=== PATIENT | female | born 1965 | race Caucasian/White ===

== ENCOUNTER 2016-11-23 15:15 | Emergency (ER) | payer MEDICAID, OTHER ==
[~2016-11-23] VITALS: Ht 149.9 cm; Wt 65.6 kg
[~2016-11-23 15:15] MED LIST: ALBU18HF INH; ALBU8.5H3 INH; ALBU8.5H5 INH; ASPI-496 PO; CARB200T4 PO; CLON-364 PO; CYCL-259 PO; DOXY100T PO; FENO145T32 PO; GABA600T2 PO; GABA800T2 PO; HYDR-3138 PO; IBUP200T5 PO; IPRA3AMP NPPB; LEVO750T26 PO; LITH300T3 PO; METF500T4 PO; NICO1PAT4 TD; NICO1PAT5 TD; NYST60PO TP; OXCA600T3 PO; PANT40TA5 PO; POLY17PO5 PO; TRAM50TA2 PO; naproxen PO
[2016-11-23 16:17] LABS: HEMOGLOBIN 14.4 g/dL (11.7-16.4)
[2016-11-23 16:25] LABS: ASPARTATE AMINO TRANSFERASE 10 U/L (15-37); BLOOD UREA NITROGEN 14 mg/dL (7-18)
[2016-11-23 16:38] LABS: IS PT STATUS REG ER OR PRE ER? YES
[2016-11-23] MEDS ORDERED: SODIUM CHLORIDE 0.9% 1,000 ML IV ONE (17:01)
[2016-11-23] MEDS ORDERED: SODIUM CHLORIDE 0.9% 1,000ML IVBOLUS ONE (17:30)
[2016-11-23] MEDS ORDERED: MECLIZINE CHEWABLE 25 MG TAB PO ONE (17:30)
[2016-11-23] MEDS ORDERED: KETOROLAC 30 MG/1 ML IVPush ONE (17:30)
[2016-11-23] MEDS ORDERED: SODIUM CHLORIDE FLUSH 10ML SYR IVF ONE (17:30)
[2016-11-23] MEDS ORDERED: KETOROLAC 30 MG/1 ML ONE (17:31)
[2016-11-23] MEDS ORDERED: MECLIZINE CHEWABLE 25 MG TAB ONE (17:31)
[2016-11-23 19:50] VITALS: BP 102/78
== END 2016-11-23 19:52 | disposition home or self-care (01) ==
LOC: ED 19:46
DX: R07.89 Other chest pain (principal); H81.11 Benign paroxysmal vertigo, right ear; H66.001 Acute suppurative otitis media without spontaneous rupture of ear drum, right ear; F31.9 Bipolar disorder, unspecified; J45.909 Unspecified asthma, uncomplicated; F43.10 Post-traumatic stress disorder, unspecified; C50.919 Malignant neoplasm of unspecified site of unspecified female breast; Z90.49 Acquired absence of other specified parts of digestive tract; Z90.710 Acquired absence of both cervix and uterus
CPT/HCPCS: 36415; 70450; 71020; 80053; 84484; 85025; 93005; 96361; 96374; 99285; J1885; J7030

== ENCOUNTER 2017-02-10 17:30 | Emergency (ER) | payer OTHER ==
[~2017-02-10] VITALS: Ht 152.4 cm; Wt 65.1 kg
[2017-02-10 18:23] LABS: ASPARTATE AMINO TRANSFERASE 15 U/L (15-37); BLOOD UREA NITROGEN 16 mg/dL (7-18)
[2017-02-10] MEDS ORDERED: KETOROLAC 30 MG/1 ML ONE (18:29)
[2017-02-10] MEDS ORDERED: ONDANSETRON 2MG/ML, 2ML ONE (18:29)
[2017-02-10] MEDS ORDERED: SODIUM CHLORIDE 0.9% 1,000ML IVBOLUS ONE (18:30)
[2017-02-10] MEDS ORDERED: KETOROLAC 30 MG/1 ML IVPush ONE (18:30)
[2017-02-10] MEDS ORDERED: ONDANSETRON 2MG/ML, 2ML IVPush ONE (18:30)
[2017-02-10] MEDS ORDERED: SODIUM CHLORIDE FLUSH 10ML SYR IVF ONE (18:30)
[2017-02-10] MEDS ORDERED: OMNIPAQUE 350 MG/ML, 100ML BOTTLE ONE (19:18)
[2017-02-10] MEDS ORDERED: HYDROcodone/APAP 5/325 TABLET ONE (21:17)
[2017-02-10] MEDS ORDERED: HYDROcodone/APAP 5/325 TABLET PO ONE (21:30)
[2017-02-10 21:36] VITALS: BP 116/76
== END 2017-02-10 21:38 | disposition home or self-care (01) ==
LOC: ED 20:19
DX: K40.90 Unilateral inguinal hernia, without obstruction or gangrene, not specified as recurrent (principal); E11.9 Type 2 diabetes mellitus without complications; Z90.710 Acquired absence of both cervix and uterus
CPT/HCPCS: 36415; 74022; 74177; 80053; 81003; 83690; 85025; 96361; 96374; 96375; 99285; J1885; J2405; J7030; Q9967

== ENCOUNTER 2017-08-21 02:26 | Emergency (ER) | payer SELFPAY ==
[~2017-08-21] VITALS: Ht 152.4 cm; Wt 70.4 kg
[~2017-08-21 02:26] MED LIST changes: -ALBU8.5H3 INH; +ALBU8.5H8 INH; -HYDR-3138 PO; +HYDR-3237 PO; +IBUP-1484 PO; -IBUP200T5 PO; +NICO-486 TD; +NICO-487 TD; -NICO1PAT4 TD; -NICO1PAT5 TD
[2017-08-21] MEDS ORDERED: ALBUTEROL/IPRATROPIUM 2.5MG/0.5MG, 3 ML ONE (02:52)
[2017-08-21] MEDS ORDERED: ALBUTEROL SULFATE 2.5 MG/3 ML ONE (02:52)
[2017-08-21] MEDS ORDERED: ALBUTEROL SULFATE 2.5 MG/3 ML NPPB ONE (03:00)
[2017-08-21] MEDS ORDERED: ALBUTEROL/IPRATROPIUM 2.5MG/0.5MG, 3 ML NPPB ONE (03:00)
[2017-08-21 03:29] VITALS: BP 119/71
== END 2017-08-21 03:42 | disposition home or self-care (01) ==
LOC: ED 02:46
DX: J44.1 Chronic obstructive pulmonary disease with (acute) exacerbation (principal); J20.9 Acute bronchitis, unspecified; F31.9 Bipolar disorder, unspecified; E11.9 Type 2 diabetes mellitus without complications; F17.200 Nicotine dependence, unspecified, uncomplicated; Z90.49 Acquired absence of other specified parts of digestive tract
CPT/HCPCS: 71020; 93005; 94640; 99284; J7512; J7613; J7620

== ENCOUNTER 2018-02-08 10:45 | Emergency (ER) | payer SELFPAY ==
[~2018-02-08] VITALS: Ht 152.4 cm; Wt 72.0 kg
[2018-02-08] MEDS ORDERED: SODIUM CHLORIDE FLUSH 10ML SYR IVF ONE (11:30)
[2018-02-08] MEDS ORDERED: SODIUM CHLORIDE 0.9% 1,000ML IVBOLUS ONE (11:30)
[2018-02-08 12:02] LABS: BASOPHILS # (AUTO) 0.04 x10^3/uL (0-0.1); BASOPHILS % (AUTO) 0 % (0-1); EOSINOPHILS # (AUTO) 0.25 x10^3/uL (0-0.4); EOSINOPHILS % (AUTO) 3 % (1-7); LYMPHOCYTES # (AUTO) 3.53 x10^3/uL (1-3.4); LYMPHOCYTES % (AUTO) 36 % (22-44); MD NO; MEAN CORPUSCULAR HEMOGLOBIN 32.2 pg (27.0-34.8); MEAN CORPUSCULAR HGB CONC 34.1 g/dL (32.4-35.8); MEAN CORPUSCULAR VOLUME 94.3 fL (80-100); MEAN PLATELET VOLUME 7.9 fL (7.4-10.4); MONOCYTES # (AUTO) 0.57 x10^3/uL (0.2-0.8); MONOCYTES % (AUTO) 6 % (2-9); NEUTROPHILS # (AUTO) 5.33 x10^3/uL (1.8-6.8); NEUTROPHILS % (AUTO) 55 % (42-75); PLATELET COUNT 303 x10^3/uL (130-400); RED CELL DISTRIBUTION WIDTH 13.1 % (9.6-15.2)
[2018-02-08 12:12] LABS: ALANINE AMINOTRANSFERASE 29 U/L (12-78); ALBUMIN 3.5 g/dL (3.4-5.0); ANION GAP 10 mmol/L (5-15); CALCIUM 8.8 mg/dL (8.5-10.1); CHLORIDE 108 mmol/L (98-107)
[2018-02-08 12:14] LABS: ALKALINE PHOSPHATASE 126 U/L (45-117); BILIRUBIN,TOTAL 0.2 mg/dL (0.2-1.0); TOTAL PROTEIN 7.2 g/dL (6.4-8.2)
[2018-02-08 12:22] LABS: ACETONE, SERUM Negative (Negative)
[2018-02-08 12:48] LABS: HEMOGLOBIN A1C 7.1 % (4.2-6.3)
[2018-02-08 13:53] VITALS: BP 108/77
== END 2018-02-08 13:55 | disposition home or self-care (01) ==
LOC: ED 13:52
DX: R55 Syncope and collapse (principal); E11.65 Type 2 diabetes mellitus with hyperglycemia; J44.9 Chronic obstructive pulmonary disease, unspecified; Z90.49 Acquired absence of other specified parts of digestive tract; G43.909 Migraine, unspecified, not intractable, without status migrainosus; F43.10 Post-traumatic stress disorder, unspecified
CPT/HCPCS: 36415; 71046; 80053; 82010; 82800; 83036; 85025; 93005; 99285

== ENCOUNTER 2018-04-05 12:25 | Emergency (ER) | payer SELFPAY ==
[~2018-04-05] VITALS: Ht 152.4 cm; Wt 69.0 kg
[~2018-04-05 12:25] MED LIST changes: -CLON-364 PO; +CLON0.5T11 PO; -IPRA3AMP NPPB; +IPRA3AMP30 NPPB; -METF500T4 PO; +METF500T5 PO
[2018-04-05 12:30] VITALS: BP 120/82
== END 2018-04-05 13:27 | disposition home or self-care (01) ==
LOC: ED 13:26
DX: H66.003 Acute suppurative otitis media without spontaneous rupture of ear drum, bilateral (principal); E11.65 Type 2 diabetes mellitus with hyperglycemia; J44.9 Chronic obstructive pulmonary disease, unspecified; F17.210 Nicotine dependence, cigarettes, uncomplicated; Z85.3 Personal history of malignant neoplasm of breast
CPT/HCPCS: 99283

== ENCOUNTER 2018-12-19 17:36 | Inpatient (IN) | payer MEDICAID ==
[~2018-12-19] VITALS: Ht 152.4 cm; Wt 72.6 kg
[~2018-12-19 17:36] MED LIST changes: -GABA600T2 PO; +GABA600T7 PO; -GABA800T2 PO; +GABA800T5 PO; +METF500T17 PO; -METF500T5 PO
[2018-12-19] MEDS ORDERED: ALBUTEROL/IPRATROPIUM 2.5MG/0.5MG, 3 ML NPPB ONE (18:00)
[2018-12-19 18:14] LABS: BASOPHILS # (AUTO) 0.04 x10^3/uL (0-0.1); BASOPHILS % (AUTO) 0 % (0-1); EOSINOPHILS # (AUTO) 0.18 x10^3/uL (0-0.4); EOSINOPHILS % (AUTO) 2 % (1-7); LYMPHOCYTES # (AUTO) 2.75 x10^3/uL (1-3.4); LYMPHOCYTES % (AUTO) 29 % (22-44); MD NO; MEAN CORPUSCULAR HEMOGLOBIN 32.4 pg (27.0-34.8); MEAN CORPUSCULAR HGB CONC 34.6 g/dL (32.4-35.8); MEAN CORPUSCULAR VOLUME 93.6 fL (80-100); MEAN PLATELET VOLUME 8.3 fL (7.4-10.4); MONOCYTES # (AUTO) 0.73 x10^3/uL (0.2-0.8); MONOCYTES % (AUTO) 8 % (2-9); NEUTROPHILS % (AUTO) 61 % (42-75); PLATELET COUNT 269 x10^3/uL (130-400); RED BLOOD COUNT 4.71 x10^6/uL (3.82-5.3); RED CELL DISTRIBUTION WIDTH 13.1 % (9.6-15.2)
[2018-12-19 18:19] LABS: ALBUMIN 3.8 g/dL (3.4-5.0); ANION GAP 8 mmol/L (5-15); CALCIUM 9.2 mg/dL (8.5-10.1); CHLORIDE 109 mmol/L (98-107); CREATININE 0.92 mg/dL (0.55-1.02)
--- NOTE | 2018-12-19 18:19 | NUR ---
PT PRESSENTED TO ED WITH SHORTNESS OF BREATH AND COUGH X 4 DAYS. PT A&OX4. PT PLACED IN ROOM AND PLACED ON BP AND CONT. PULSE OXIMETER. ASSESSMENT COMPLETED. PT PLACED ON 2 LITERS NC AT 97%. HAS SEEN PT AND ORDERS RECEIVED. REPORT GIVEN TO JF CARDOZA
[2018-12-19] MEDS ORDERED: ALBUTEROL/IPRATROPIUM 2.5MG/0.5MG, 3 ML ONE ×2 (18:24→23:10)
--- NOTE | 2018-12-19 18:27 | NUR ---
RT TO BEDSIDE
[2018-12-19] MEDS ORDERED: ALBU90AE INH (18:29)
[2018-12-19 18:39] LABS: TROPONIN I < 0.015 ng/mL (0.000-0.045)
--- NOTE | 2018-12-19 18:58 | NUR ---
AFTER BREATHING TREATMENT BREATH SOUNDS TO BASES MORE AUDIBLE. PATIENT REPORT "I FEEL MUCH BETTER." HOWEVER, ON ROOM AIR POX 86-88% AND HR REMAINS 105-110 PROVIDER MADE AWARE-PLAN TO ADMIT PATIENT UPDATED WITH ESTIMATED POC CALL SUAREZ IN HAND/SIDE RAIL UP REPORT TO MARCO CARDOZA
--- NOTE | 2018-12-19 19:04 | NUR ---
report from kristin mckinney. pt updated on poc. resting in room. connected to monitors. call light within reach.
[2018-12-19] MEDS ORDERED: ENOXAPARIN 40 MG/0.4 ML SQ SCH (20:30)
[2018-12-19] MEDS ORDERED: POLYETHYLENE GLYCOL 17 GM PACKET PO PRN (20:30)
[2018-12-19] MEDS ORDERED: ACETAMINOPHEN 325 MG TABLET PO PRN (20:30)
[2018-12-19] MEDS ORDERED: hydrALAzine 20 MG/ML, 1ML IVPush PRN (20:30)
[2018-12-19] MEDS ORDERED: GUAIFENESIN/COD200MG-20MG/10ML LIQUID PO PRN (20:30)
[2018-12-19 20:54] LABS: HEMOGLOBIN A1C 6.8 % (4.2-6.3)
[2018-12-19 21:04] VITALS: BP 120/82
[2018-12-19] MEDS ORDERED: NICOTINE 21 MG/24 HR PATCH.TD24 TD SCH (22:00)
[2018-12-20 00:21] VITALS: BP 125/81
[2018-12-20] MEDS: methylPREDNISolone SOD SUCC 125 MG/2 ML IVPush SCH ×2 (00:32→06:25)
[2018-12-20 06:10] LABS: BASOPHILS # (AUTO) 0.01 x10^3/uL (0-0.1); BASOPHILS % (AUTO) 0 % (0-1); EOSINOPHILS % (AUTO) 0 % (1-7); LYMPHOCYTES # (AUTO) 1.05 x10^3/uL (1-3.4); LYMPHOCYTES % (AUTO) 10 % (22-44); MD NO; MEAN CORPUSCULAR HEMOGLOBIN 32.1 pg (27.0-34.8); MEAN CORPUSCULAR HGB CONC 34.5 g/dL (32.4-35.8); MEAN CORPUSCULAR VOLUME 93.2 fL (80-100); MEAN PLATELET VOLUME 8.4 fL (7.4-10.4); MONOCYTES # (AUTO) 0.04 x10^3/uL (0.2-0.8); MONOCYTES % (AUTO) 0 % (2-9); NEUTROPHILS # (AUTO) 8.99 x10^3/uL (1.8-6.8); NEUTROPHILS % (AUTO) 89 % (42-75); PLATELET COUNT 272 x10^3/uL (130-400); RED BLOOD COUNT 4.76 x10^6/uL (3.82-5.3); RED CELL DISTRIBUTION WIDTH 13.2 % (9.6-15.2)
[2018-12-20 06:19] LABS: ALBUMIN 3.9 g/dL (3.4-5.0); ANION GAP 7 mmol/L (5-15); CALCIUM 9.7 mg/dL (8.5-10.1); CHLORIDE 110 mmol/L (98-107)
[2018-12-20 06:23] LABS: ALANINE AMINOTRANSFERASE 34 U/L (12-78); ALKALINE PHOSPHATASE 127 U/L (45-117); CREATININE 1.03 mg/dL (0.55-1.02); TOTAL PROTEIN 7.7 g/dL (6.4-8.2)
[2018-12-20 06:24] LABS: BILIRUBIN,TOTAL < 0.1 mg/dL (0.2-1.0)
[2018-12-20 06:59] VITALS: BP 121/83
[2018-12-20] MEDS ORDERED: ALBUTEROL SULFATE 2.5 MG/3 ML NPPB SCH (07:00)
[2018-12-20] MEDS ORDERED: IPRA3AMP30 NEB (11:31)
[2018-12-20] MEDS ORDERED: NICO-485 TD (11:31)
[2018-12-20] MEDS ORDERED: NICO-486 TD (11:31)
[2018-12-20] MEDS ORDERED: NICO-487 TD (11:31)
[2018-12-20] MEDS ORDERED: METH4TAB2 PO (11:31)
== END 2018-12-20 12:17 | disposition home or self-care (01) | DRG 189 ==
LOC: ED 19:19 → EDIP 19:37 → 4WST 20:32 → DCLOUNGE 12-20 12:05
PROVIDERS: ADMIT Family Medicine; ATTEND Family Medicine
DX: J96.01 Acute respiratory failure with hypoxia (principal); J43.9 Emphysema, unspecified; E11.9 Type 2 diabetes mellitus without complications; F31.9 Bipolar disorder, unspecified; F43.10 Post-traumatic stress disorder, unspecified; F17.200 Nicotine dependence, unspecified, uncomplicated; I10 Essential (primary) hypertension; Z87.01 Personal history of pneumonia (recurrent); Z85.3 Personal history of malignant neoplasm of breast; Z79.01 Long term (current) use of anticoagulants; Z90.710 Acquired absence of both cervix and uterus; Z90.49 Acquired absence of other specified parts of digestive tract; Z90.10 Acquired absence of unspecified breast and nipple
CPT/HCPCS: 36415; 99285; J7613; J7620; 71045; 80048; 80053; 82040; 83036; 84484; 85025; 93005; 94640; G0378; J1650; J2930; J7512

== ENCOUNTER 2019-08-02 22:44 | Emergency (ER) | payer MEDICAID, OTHER ==
[~2019-08-02] VITALS: Ht 152.4 cm; Wt 70.8 kg
[~2019-08-02 22:44] MED LIST changes: +ALBU90AE INH; -IBUP-1484 PO; +IBUP-1902 PO; +IPRA3AMP30 NEB; +METH4TAB2 PO; +NICO-485 TD
[2019-08-02 22:46] VITALS: BP 161/92
--- NOTE | 2019-08-02 22:58 | NUR ---
PT HERE WITH C/O LEFT SIDED DENTAL PAIN, THINKS "I MIGHT HAVE AN ABCESS." PT DENIES TRAUMA, UNABLE TO STATE IF PAIN IS LOCALIZED TO UPPER OR LOWER JAW. PT TEARFUL. PA AT BEDSIDE FOR EXAM.
[2019-08-02] MEDS ORDERED: BUPIVACAINE 0.25% ONE (23:06)
[2019-08-02] MEDS ORDERED: LIDOCAINE-MPF 1%, 5ML ONE (23:06)
--- NOTE | 2019-08-02 23:09 | NUR ---
PA AT BEDSIDE.
--- NOTE | 2019-08-02 23:27 | NUR ---
Patient/Caregiver given discharge instructions and they have confirmed that they understand the instructions. Patient ambulatory with steady gait.
[2019-08-02] MEDS ORDERED: LIDOCAINE-MPF 1%, 5ML INFIL ONE (23:30)
[2019-08-02] MEDS ORDERED: BUPIVACAINE 0.25% INFIL ONE (23:30)
== END 2019-08-02 23:34 | disposition home or self-care (01) ==
LOC: ED 23:15
DX: K08.89 Other specified disorders of teeth and supporting structures (principal); R51 Headache; F17.210 Nicotine dependence, cigarettes, uncomplicated; E11.9 Type 2 diabetes mellitus without complications; Z72.9 Problem related to lifestyle, unspecified; Z72.89 Other problems related to lifestyle
CPT/HCPCS: 64400; 99284

== ENCOUNTER 2019-09-22 15:21 | Emergency (ER) | payer OTHER ==
[~2019-09-22] VITALS: Ht 152.4 cm; Wt 73.0 kg
--- NOTE | 2019-09-22 16:19 | NUR ---
Pt to room from [facility].
[2019-09-22] MEDS ORDERED: ASPIRIN 81 MG TABLET CHEW ONE (17:05)
[2019-09-22 17:08] LABS: BASOPHILS # (AUTO) 0.05 x10^3/uL (0-0.1); BASOPHILS % (AUTO) 0 % (0-1); EOSINOPHILS # (AUTO) 0.16 x10^3/uL (0-0.4); EOSINOPHILS % (AUTO) 1 % (1-7); LYMPHOCYTES # (AUTO) 3.78 x10^3/uL (1-3.4); LYMPHOCYTES % (AUTO) 28 % (22-44); MD NO; MEAN CORPUSCULAR HEMOGLOBIN 31.7 pg (27.0-34.8); MEAN CORPUSCULAR HGB CONC 33.8 g/dL (32.4-35.8); MEAN CORPUSCULAR VOLUME 93.9 fL (80-100); MEAN PLATELET VOLUME 8.3 fL (7.4-10.4); MONOCYTES # (AUTO) 0.51 x10^3/uL (0.2-0.8); MONOCYTES % (AUTO) 4 % (2-9); NEUTROPHILS % (AUTO) 66 % (42-75); PLATELET COUNT 306 x10^3/uL (130-400); RED BLOOD COUNT 4.89 x10^6/uL (3.82-5.3); RED CELL DISTRIBUTION WIDTH 13.6 % (9.6-15.2)
--- NOTE | 2019-09-22 17:14 | NUR ---
BEDSIDE REPORT RECEIVED FROM SONY SALINAS. PLAN OF CARE DISCUSSED
--- NOTE | 2019-09-22 17:14 | NUR ---
THIS IS A 54 YO FEMALE BIB [facility] FOR INTERMITTENT CP STARTING "A FEW DAYS AGO". PATIENT CURRENTLY C/O 2/10 STERNAL PAIN WITH NO RADIATION, DENIES SOB, DENIES BETANCOURT, DENIES ANY CARDIAC HX. PATIENT A&OX4, LABS DRAWN, VSS, NAD, CALL LIGHT IN REACH.
[2019-09-22 17:17] LABS: ALBUMIN 3.7 g/dL (3.4-5.0); ANION GAP 8 mmol/L (5-15); CALCIUM 9.3 mg/dL (8.5-10.1); CHLORIDE 108 mmol/L (98-107)
--- NOTE | 2019-09-22 17:20 | NUR ---
UNIVERSITY ADMINISTRATOR IN ROOM
[2019-09-22 17:21] LABS: TROPONIN I < 0.015 ng/mL (0.000-0.045)
[2019-09-22] MEDS ORDERED: ASPIRIN 81 MG TABLET CHEW PO ONE (18:00)
--- NOTE | 2019-09-22 18:05 | NUR ---
PATIENT RESTING, VSS, NAD, RESPIRATIONS EVEN AND UNLABORED, WHEN ASKED ABOUT CHEST PAIN, PT STATES "IT'S VERY DULL NOW, LIKE -10/16". WAITING FOR DISPO
[2019-09-22 18:47] VITALS: BP 130/81
== END 2019-09-22 18:49 | disposition home or self-care (01) ==
LOC: ED 18:16
DX: R07.89 Other chest pain (principal); I11.9 Hypertensive heart disease without heart failure; E11.9 Type 2 diabetes mellitus without complications; J44.0 Chronic obstructive pulmonary disease with (acute) lower respiratory infection; F17.200 Nicotine dependence, unspecified, uncomplicated
CPT/HCPCS: 36415; 71045; 80048; 82040; 84484; 85025; 93005; 99284

== ENCOUNTER 2020-01-18 16:30 | Emergency (ER) | payer MEDICAID ==
[~2020-01-18] VITALS: Ht 152.4 cm; Wt 74.0 kg
[~2020-01-18 16:30] MED LIST changes: +CLON-364 PO; -CLON0.5T11 PO
[2020-01-18 22:46] LABS: BASOPHILS # (AUTO) 0.06 x10^3/uL (0-0.1); BASOPHILS % (AUTO) 1 % (0-1); EOSINOPHILS # (AUTO) 0.21 x10^3/uL (0-0.4); EOSINOPHILS % (AUTO) 2 % (1-7); LYMPHOCYTES # (AUTO) 4.11 x10^3/uL (1-3.4); LYMPHOCYTES % (AUTO) 37 % (22-44); MD NO; MEAN CORPUSCULAR HEMOGLOBIN 31.8 pg (27.0-34.8); MEAN CORPUSCULAR HGB CONC 33.8 g/dL (32.4-35.8); MEAN CORPUSCULAR VOLUME 94.1 fL (80-100); MEAN PLATELET VOLUME 8.6 fL (7.4-10.4); MONOCYTES # (AUTO) 0.55 x10^3/uL (0.2-0.8); MONOCYTES % (AUTO) 5 % (2-9); NEUTROPHILS # (AUTO) 6.26 x10^3/uL (1.8-6.8); NEUTROPHILS % (AUTO) 56 % (42-75); PLATELET COUNT 244 x10^3/uL (130-400); RED BLOOD COUNT 4.78 x10^6/uL (3.82-5.3); RED CELL DISTRIBUTION WIDTH 13.3 % (9.6-15.2)
--- NOTE | 2020-01-18 22:47 | NUR ---
PT PLACED ON MONITOR. PT RESTING COMFORTABLY. WILL CONTINUE TO MONITOR.
[2020-01-18 22:56] LABS: ALANINE AMINOTRANSFERASE 123 U/L (12-78); ALBUMIN 3.5 g/dL (3.4-5.0); ANION GAP 8 mmol/L (5-15); CALCIUM 9.2 mg/dL (8.5-10.1); CHLORIDE 109 mmol/L (98-107); CREATININE 0.82 mg/dL (0.55-1.02)
[2020-01-18 23:01] LABS: ALKALINE PHOSPHATASE 150 U/L (45-117); BILIRUBIN,TOTAL 0.4 mg/dL (0.2-1.0); TOTAL PROTEIN 7.5 g/dL (6.4-8.2); TROPONIN I < 0.015 ng/mL (0.000-0.045)
[2020-01-18 23:46] VITALS: BP 128/83
== END 2020-01-18 23:49 | disposition home or self-care (01) ==
LOC: ED 22:20
DX: J20.8 Acute bronchitis due to other specified organisms (principal); Z20.828 Contact with and (suspected) exposure to other viral communicable diseases; R05 Cough; R50.9 Fever, unspecified; R06.02 Shortness of breath; R00.0 Tachycardia, unspecified; E11.9 Type 2 diabetes mellitus without complications; I11.9 Hypertensive heart disease without heart failure; J44.9 Chronic obstructive pulmonary disease, unspecified
CPT/HCPCS: 36415; 71045; 80053; 83880; 84484; 85025; 93005; 99285; U0001

== ENCOUNTER 2020-04-18 21:00 | Emergency (ER) | payer MEDICAID ==
[~2020-04-18] VITALS: Ht 157.5 cm; Wt 69.8 kg
[2020-04-18 21:18] VITALS: BP 123/88
--- NOTE | 2020-04-18 21:28 | NUR ---
PT AMBULATES FROM TRIAGE TO ROOM WITH STEADY GAIT.
== END 2020-04-18 22:32 ==
LOC: ED 22:25
DX: K02.9 Dental caries, unspecified (principal); K05.10 Chronic gingivitis, plaque induced; J44.9 Chronic obstructive pulmonary disease, unspecified; I10 Essential (primary) hypertension; J45.909 Unspecified asthma, uncomplicated; E11.65 Type 2 diabetes mellitus with hyperglycemia; Z90.49 Acquired absence of other specified parts of digestive tract; Z90.10 Acquired absence of unspecified breast and nipple; Z90.710 Acquired absence of both cervix and uterus
CPT/HCPCS: 99283

== ENCOUNTER 2020-08-05 07:23 | Emergency (ER) | payer MEDICAID ==
[~2020-08-05] VITALS: Ht 152.4 cm; Wt 69.5 kg
[~2020-08-05 07:23] MED LIST changes: -PANT40TA5 PO; +PANT40TA6 PO
[2020-08-05 07:27] VITALS: BP 133/87
--- NOTE | 2020-08-05 07:45 | NUR ---
THIS IS A 55 YEAR OLD FEMALE WHO C/O RT LOWER DENTAL "ABCESS", C/O PAIN AND SWELLING
[2020-08-05] MEDS ORDERED: HYDROcodone/APAP 5/325 TABLET ONE (08:18)
[2020-08-05] MEDS ORDERED: HYDROcodone/APAP 5/325 TABLET PO ONE (08:30)
--- NOTE | 2020-08-05 08:43 | NUR ---
Patient/Caregiver given discharge instructions and they have confirmed that they understand the instructions. Patient ambulatory with steady gait.
== END 2020-08-05 08:45 | disposition home or self-care (01) ==
LOC: ED 08:39
DX: K02.9 Dental caries, unspecified (principal); K08.89 Other specified disorders of teeth and supporting structures; F17.290 Nicotine dependence, other tobacco product, uncomplicated; J43.9 Emphysema, unspecified
CPT/HCPCS: 99283